=== PATIENT | female | born 1960 | race Two or more races ===

== ENCOUNTER 2021-03-09 17:42 | Emergency (ER) | payer MEDICARE ==
[~2021-03-09] VITALS: Ht 154.9 cm; Wt 104.5 kg
[2021-03-09 18:41] LABS: EOSINOPHILS # (AUTO) 0.2 X10'3 (0-0.9)
[2021-03-09 18:43] LABS: BASOPHILS % (AUTO) 0.4 % (0-1); HEMATOCRIT 46.1 % (35.0-45.0); HEMOGLOBIN 15.7 g/dl (12.0-16.0); LYMPHOCYTES # (AUTO) 0.9 X10'3 (1.1-4.8); LYMPHOCYTES % (AUTO) 13.8 % (21-51); MEAN CORPUSCULAR HEMOGLOBIN 30.9 PG (27.0-31.0); MEAN CORPUSCULAR HGB CONC 34.1 g/dL (33.0-36.5); MEAN CORPUSCULAR VOLUME 90.8 FL (78-98); MEAN PLATELET VOLUME 7.7 FL (7.4-10.4); MONOCYTES # (AUTO) 0.5 X10'3 (0-0.9); MONOCYTES % (AUTO) 8.6 % (2-12); NEUTROPHILS # (AUTO) 4.6 X10'3 (1.8-7.7); NEUTROPHILS % (AUTO) 74.2 % (42-75); PLATELET COUNT 315 X10'3 (140-440); RED BLOOD COUNT 5.08 X10'6 (4.20-5.60); RED CELL DISTRIBUTION WIDTH 12.3 % (11.5-14.5); WHITE BLOOD COUNT 6.2 X10'3 (4.5-11.0)
[2021-03-09 18:59] LABS: ALANINE AMINOTRANSFERASE 58 U/L (12-78); ALBUMIN 3.1 G/DL (3.4-5.0); ALBUMIN/GLOBULIN RATIO 0.6 (1.1-1.5); ALKALINE PHOSPHATASE 75 IU/L (46-116); ANION GAP 10 (8-16); ASPARTATE AMINO TRANSFERASE 47 U/L (10-37); BILIRUBIN,TOTAL 1.8 MG/DL (0.1-1.0); BLOOD UREA NITROGEN 21 MG/DL (7-18); BUN/CREATININE RATIO 19.4 (6.6-38.0); CALCIUM 8.8 MG/DL (8.5-10.1); CHLORIDE 102 MMOL/L (99-107); CREATININE 1.08 MG/DL (0.40-0.90); GLUCOSE 106 MG/DL (70-104); POTASSIUM 3.6 MMOL/L (3.5-5.1); SODIUM 139 MMOL/L (135-145); TOTAL CARBON DIOXIDE 27.2 MMOL/L (24-32); eGFR 52 ML/MIN
[2021-03-09 20:56] VITALS: BP 118/78
[2021-03-09] MEDS ORDERED: CHOL100025 PO (21:39)
[2021-03-20] MEDS ORDERED: PANT40TA54 PO (21:37)
[2021-03-20] MEDS ORDERED: ALBU8.5H17 IH (22:14)
[2021-03-21] MEDS ORDERED: FLUT1AER INH (10:23)
== END 2021-03-09 20:58 | disposition home or self-care (01) ==
LOC: ER 17:43
DX: U07.1 COVID-19 (principal); J44.9 Chronic obstructive pulmonary disease, unspecified; Z79.899 Other long term (current) drug therapy; Z77.22 Contact with and (suspected) exposure to environmental tobacco smoke (acute) (chronic)
CPT/HCPCS: 36415; 80053; 85025; 85379; 99283

== ENCOUNTER 2024-04-28 10:22 | Day surgery (SDC) | payer BC, MEDICARE ==
[2024-04-27 16:19] LABS: BASOPHILS % (AUTO) 0.5 % (0-1); EOSINOPHILS # (AUTO) 0.2 X10'3 (0-0.9); EOSINOPHILS % (AUTO) 2.3 % (0-6); LYMPHOCYTES # (AUTO) 1.7 X10'3 (1.1-4.8); LYMPHOCYTES % (AUTO) 17.6 % (21-51); MEAN CORPUSCULAR HEMOGLOBIN 31.5 PG (27.0-31.0); MEAN CORPUSCULAR HGB CONC 33.8 g/dL (33.0-36.5); MEAN CORPUSCULAR VOLUME 93.3 FL (78-98); MEAN PLATELET VOLUME 7.4 FL (7.4-10.4); MONOCYTES # (AUTO) 0.5 X10'3 (0-0.9); MONOCYTES % (AUTO) 5.4 % (2-12); NEUTROPHILS % (AUTO) 74.2 % (42-75); PRE OP HEMATOCRIT 40.6 % (35.0-45.0); PRE OP HEMOGLOBIN 13.7 g/dL (12.0-16.0); PRE OP PLATELET COUNT 314 X10'3 (140-440); PRE OP WHITE BLOOD COUNT 9.5 10'3 (4.8-10.8); RED BLOOD COUNT 4.35 X10'6 (4.20-5.60); RED CELL DISTRIBUTION WIDTH 12.3 % (11.5-14.5)
[2024-04-27 16:23] LABS: ALBUMIN 3.5 G/DL (3.4-5.0); ALKALINE PHOSPHATASE 103 IU/L (46-116); BLOOD UREA NITROGEN 18 MG/DL (7-18); BUN/CREATININE RATIO 29.5 (10.0-20.0); CALCIUM 8.6 MG/DL (8.5-10.1); CHLORIDE 106 MMOL/L (99-107); CREATININE 0.61 MG/DL (0.40-0.90); PRE OP ALT 24 U/L (30-65); PRE OP ANION GAP 9 (8-16); PRE OP AST 24 U/L (10-37); PRE OP BILIRUB, TOTAL 0.9 MG/DL (0.0-1.0); PRE OP GLUCOSE 92 MG/DL (70-104); PRE OP POTASSIUM 4.1 MMOL/L (3.4-5.1); PRE OP SODIUM 142 MMOL/L (135-145); TOTAL CARBON DIOXIDE 27.5 MMOL/L (24-32); TOTAL PROTEIN 7.1 G/DL (6.4-8.2); eGFR > 90 ML/MIN
[2024-04-28] VITALS (8 sets, daily range): BP systolic 92–131; BP diastolic 52–74; PULSE 56–73; RESP 9–16; TEMP 97.3; O2SAT 98–100
[~2024-04-28] VITALS: Ht 154.9 cm; Wt 85.5 kg
[2024-04-28] MEDS: ceFAZolin 2gm in dextrose, iso 50 ML IV ONE (05:30)
[~2024-04-28 10:22] MED LIST: ALBU8.5H17 IH; APIX5TAB3 PO; BUPIVAcaine 2.5mg/ml inj 50ml vial (contains preservative) ONE; BUPIVAcaine HCl 0.25%/EPInephrine 1:200,000 inj. 10 ML VIAL ONE; LIDOcaine 1% (10mg/ml)w/preservative inj. 20ml MDV ONE; fentaNYL/PF 50MCG/1 ML 2ML syringe ONE; midazolam 1 mg/ML 2ml injection ONE
[2024-04-28] MEDS: famotidine 20mg tablet PO ONE (11:22)
[2024-04-28] MEDS: ringers solution, lacted 1,000 ML IV SCH (11:22)
[2024-04-28] MEDS ORDERED: fentaNYL/PF 50MCG/1 ML 2ML syringe ONE ×2 (11:58→13:23)
[2024-04-28] MEDS ORDERED: dexamethasone sod phosphate 4mg/ml inj. ONE (11:59)
[2024-04-28] MEDS ORDERED: ondansetron/PF 4mg/2ml inj ONE (11:59)
[2024-04-28] MEDS ORDERED: LIDOcaine 1%/PF 5ML 10 MG/ML VIAL ONE (11:59)
[2024-04-28] MEDS ORDERED: propofol inj 20 ML IV ONE (11:59)
[2024-04-28] MEDS ORDERED: sevoflurane 250ml liquid IH ONE (12:04)
[2024-04-28] MEDS: BUPIVAcaine 2.5mg/ml inj 50ml vial (contains preservative) SQ ONE (12:41)
== END 2024-04-28 14:45 | disposition home or self-care (01) ==
LOC: PAS 10:22
PROVIDERS: ATTEND Surgery
DX: C50.411 Malignant neoplasm of upper-outer quadrant of right female breast (principal); G89.18 Other acute postprocedural pain; J44.9 Chronic obstructive pulmonary disease, unspecified; Z86.718 Personal history of other venous thrombosis and embolism; Z86.73 Personal history of transient ischemic attack (TIA), and cerebral infarction without residual deficits; Z79.01 Long term (current) use of anticoagulants; Z98.890 Other specified postprocedural states; Z88.5 Allergy status to narcotic agent; Z88.8 Allergy status to other drugs, medicaments and biological substances
CPT/HCPCS: 19301; 36415; 38525; 38792; 64420; 64421; 76098; 80053; 82948; 85025; 93005; J0690; J1100; J2405; J2704; J3010; J3490; J7030; J7120; Z7506; Z7508; Z7512; A4215; A4618; A6449; A7000; J2250

== ENCOUNTER 2024-10-17 18:02 | Emergency (ER) | payer OTHER, BC ==
[~2024-10-17] VITALS: Ht 154.9 cm; Wt 88.2 kg
[~2024-10-17 18:02] MED LIST changes: -BUPIVAcaine 2.5mg/ml inj 50ml vial (contains preservative) ONE; -BUPIVAcaine HCl 0.25%/EPInephrine 1:200,000 inj. 10 ML VIAL ONE; -LIDOcaine 1% (10mg/ml)w/preservative inj. 20ml MDV ONE; -fentaNYL/PF 50MCG/1 ML 2ML syringe ONE; -midazolam 1 mg/ML 2ml injection ONE
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
--- NOTE | 2024-10-17 18:40 | ELECTROCARDIOGRAPH REPORT ---
[facility] Test Date: 2024-10-17 Test Time: 18:39:04 Pat Name: SHEA NIELSEN Department: [facility]ER Patient ID: [id number] Room: Gender: F Grader Operator: : [id number] Requested By: NIKOLAS BENJAMIN Order Number: [id number] Reading MD: Dr. Marito Grady Measurements Intervals Lynch Rate: 90 P: 45 SD: 150 QRS: -17 QRSD: 80 T: 33 QT: 356 QTc: 436 Interpretive Statements Sinus rhythm Probable left atrial enlargement Borderline left axis deviation Low voltage, precordial leads Electronically Signed On 10-18-2024 15:46:[address] Marito Grady Please click the below link to view image of tracing.
[2024-10-17] MEDS ORDERED: iohexol 300mg/ml 100ml inj. ONE (18:47)
[2024-10-17] MEDS: ondansetron/PF 4mg/2ml inj IV ONE (18:57)
[2024-10-17] MEDS: morphine 4 MG/ML inj SYRINge IV ONE (18:57)
[2024-10-17 19:00] LABS: BASOPHILS # (AUTO) 0.1 X10'3 (0-0.2); BASOPHILS % (AUTO) 1.4 % (0-1); EOSINOPHILS # (AUTO) 0.1 X10'3 (0-0.9); EOSINOPHILS % (AUTO) 1.7 % (0-6); HEMATOCRIT 33.5 % (35.0-45.0); HEMOGLOBIN 11.6 g/dl (12.0-16.0); LYMPHOCYTES # (AUTO) 0.7 X10'3 (1.1-4.8); LYMPHOCYTES % (AUTO) 10.4 % (21-51); MEAN CORPUSCULAR HEMOGLOBIN 31.9 PG (27.0-31.0); MEAN CORPUSCULAR HGB CONC 34.5 g/dL (33.0-36.5); MEAN CORPUSCULAR VOLUME 92.5 FL (78-98); MEAN PLATELET VOLUME 7.3 FL (7.4-10.4); MONOCYTES # (AUTO) 0.4 X10'3 (0-0.9); MONOCYTES % (AUTO) 6.2 % (2-12); NEUTROPHILS # (AUTO) 5.2 X10'3 (1.8-7.7); NEUTROPHILS % (AUTO) 80.3 % (42-75); PLATELET COUNT 288 X10'3 (140-440); RED BLOOD COUNT 3.62 X10'6 (4.20-5.60); WHITE BLOOD COUNT 6.4 X10'3 (4.5-11.0)
[2024-10-17 19:10] LABS: ALBUMIN 3.2 G/DL (3.4-5.0); ANION GAP 7 (8-16); BLOOD UREA NITROGEN 17 MG/DL (7-18); CALCIUM 8.3 MG/DL (8.5-10.1); CHLORIDE 108 MMOL/L (99-107); CREATININE 0.68 MG/DL (0.40-0.90); GLUCOSE 108 MG/DL (70-104); POTASSIUM 3.8 MMOL/L (3.5-5.1); SODIUM 142 MMOL/L (135-145); TOTAL CARBON DIOXIDE 27.2 MMOL/L (24-32); eCRCL 65 ML/MIN; eGFR 88 ML/MIN
--- NOTE | 2024-10-17 19:58 | RADIOLOGY REPORT ---
Clinical History pain Comparison None Without Contrast SHEA NIELSEN, [id number] TECHNIQUE: 3 views of the right forearm FINDINGS: No evidence of acute displaced fracture or dislocation. The joints are unremarkable.No significant humaira int effusion. The soft tissues are unremarkable. IMPRESSION: No evidence of acute osseous abnormality. This report was electronically signed by John Velasco MD on 10/17/2024 7:54:28 PM.
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
[2024-10-17 21:38] VITALS: BP 145/80; PULSE 85; RESP 16; TEMP 98.3; O2SAT 97
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
== END 2024-10-17 22:20 | disposition home or self-care (01) ==
LOC: ER 18:03
DX: Z04.1 Encounter for examination and observation following transport accident (principal); J44.9 Chronic obstructive pulmonary disease, unspecified; Z85.3 Personal history of malignant neoplasm of breast; V89.2XXA Person injured in unspecified motor-vehicle accident, traffic, initial encounter; Y93.89 Activity, other specified; Y92.410 Unspecified street and highway as the place of occurrence of the external cause; Y99.8 Other external cause status
CPT/HCPCS: 36415; 70450; 71260; 72125; 73090; 74177; 80048; 84484; 85025; 93005; 96374; 96375; 99285; J2270; J2405; Q9967